=== PATIENT | female | born 1955 | race Caucasian/White ===

== ENCOUNTER 2021-03-23 13:09 | Emergency (ER) | payer MEDICARE, OTHER ==
[~2021-03-23] VITALS: Ht 152.4 cm; Wt 56.7 kg
[2021-03-23 13:25] VITALS: BP 119/80
[2021-03-23] MEDS ORDERED: IBUP-1955 PO (14:23)
[2021-03-23] MEDS ORDERED: ACET-2605 PO (14:23)
[2021-03-23] MEDS ORDERED: ACETAMINOPHEN ES 500 MG TABLET ONE (14:29)
[2021-03-23] MEDS ORDERED: ACETAMINOPHEN 325 MG TABLET PO ONE (14:30)
[2021-03-23] MEDS ORDERED: ACETAMINOPHEN 325 MG TABLET ONE ×2 (14:33→14:37)
== END 2021-03-23 14:47 | disposition home or self-care (01) ==
LOC: ER 13:12
DX: R50.9 Fever, unspecified (principal); M79.10 Myalgia, unspecified site; F41.9 Anxiety disorder, unspecified; Z88.0 Allergy status to penicillin; Z79.899 Other long term (current) drug therapy
CPT/HCPCS: 99282; L0172